=== PATIENT | male | born 1975 | race Caucasian/White ===

== ENCOUNTER 2016-12-04 10:00 | Day surgery (SDC) | payer BC ==
[~2016-12-04 10:00] MED LIST: Bupivacaine 25%/EPINEPHrine/PF 30 ML ONE
[2016-12-04] MEDS ORDERED: Lactated Ringers 1,000 ML IV SCH (11:15)
--- NOTE | 2016-12-04 11:19 | PCM.PREANE ---
Preanesthetic Assessment - Anesthesia/Transfusion/Family Hx Anesthesia History: No Prior Anesthesia Family History of Anesthesia Reaction: No Transfusion History: No Prior Transfusion(s) Intubation History: Unknown - Review of Systems General: No Symptoms Pulmonary: No Symptoms Cardiovascular: No Symptoms Gastrointestinal: No Symptoms Neurological: No Symptoms Other: Reports: None - Physical Assessment Height: 1.83 m Weight: 87.09 kg ASA Class: 1 Mental Status: Alert & Oriented x3 Airway Class: Mallampati = 2 Dentition: Reports: Normal Dentition Thyro-Mental Finger Breadths: 2 Mouth Opening Finger Breadths: 3 ROM/Head Extension: Full Lungs: Clear to Auscultation, Normal Respiratory Effort Cardiovascular: Regular Rate, Regular Rhythm - Allergies Allergies/Adverse Reactions: Allergies Allergy/AdvReac Type Severity Reaction Status Date / Time No Known Allergies Allergy Verified 12/02/16 07:55 - Blood Blood Available: No - Anesthesia Plan Pre-Op Medication Ordered: None - Acknowledgements Anesthesia Type Planned: MAC Pt an Appropriate Candidate for the Planned Anesthesia: Yes Alternatives and Risks of Anesthesia Discussed w Pt/Guardian: Yes Pt/Guardian Understands and Agrees with Anesthesia Plan: Yes PreAnesthesia Questionnaire - Past Health History Medical/Surgical History: Denies Medical/Surgical History HEENT History: Reports: Other (See Below) Other HEENT History: wears contacts - Past Surgical History Head Surgeries/Procedures: Reports: None - SUBSTANCE USE Smoking Status *Q: Former Smoker (quit 56 months ago after 25 years of smoking) Tobacco Use Within Last Twelve Months: Cigarettes Recreational Drug Use History: No - HOME MEDS Home Medications: Home Meds . [No Known Home Meds] 12/02/16 [History] - CURRENT (IN HOUSE) MEDS Current Meds: Current Medications Lactated Ringer's (Ringers, Lactated) 1,000 mls @ 100 mls/hr IV ASDIRECTED SALLY Discontinued Medications Bupivacaine HCl/Epinephrine Bitart (Sensorc Mpf 0.25%-Epi [id number]) Confirm Administered Dose 30 mls @ as directed .ROUTE .STK-MED ONE Stop: 12/04/16 08:52
[2016-12-04] MEDS ORDERED: ceFAZolin 2 GM in Premix Bag 1 BAG IV ONE (12:34)
[2016-12-04] MEDS ORDERED: Bupivacaine 0.25% 10 ML SDV INJECT ONE (12:34)
[2016-12-04] MEDS ORDERED: Propofol 200 MG/20 ML SDV ONE (12:58)
[2016-12-04] MEDS ORDERED: Midazolam 1 MG/ML 2 ML SDV ONE (12:58)
[2016-12-04] MEDS ORDERED: fentaNYL 100 MCG/2 ML SDV ONE (12:58)
[2016-12-04] MEDS ORDERED: Lidocaine 2% 5 ML SDV ONE (14:04)
[2016-12-04] MEDS ORDERED: Ondansetron 4 MG/2 ML SDV ONE (14:14)
[2016-12-04] MEDS ORDERED: Ketorolac 30 MG/ML SDV ONE (14:14)
[2016-12-04] MEDS ORDERED: Octyl 2-Cyanoacrylate 1 Tube ONE (14:20)
--- NOTE | 2016-12-04 14:48 | PCM.OPNOTE ---
- General Post-Op/Procedure Note Date of Surgery/Procedure: 12/04/16 Operative Procedure(s): excision of 4 left arm lipomas - 1.5cm each. Pre Op Diagnosis: left arm lipomas x4 Post-Op Diagnosis: Same Anesthesia Technique: Local, MAC Primary Surgeon: Rox Gonzalez Conference Specialist: Aliza Meza Complications: None Condition: Good Free Text/Narrative:: Intake & Output 12/03/16 12/04/16 12/04/16 23:59 07:59 15:59 Intake Total 950 Balance 950
--- NOTE | 2016-12-04 14:49 | PCM.POSTAN ---
POST ANESTHESIA ASSESSMENT - MENTAL STATUS Mental Status: Alert, Oriented - RESPIRATORY Respiratory Status: Respiratory Rate WNL, Airway Patent, O2 Saturation Stable - CARDIOVASCULAR CV Status: Pulse Rate WNL, Blood Pressure Stable - GASTROINTESTINAL GI Status: No Symptoms - POST OP HYDRATION Hydration Status: Adequate & Stable
--- NOTE | 2016-12-04 15:06 | PCM48HPAN ---
Post Anesthesia Note - EVALUATION WITHIN 48HRS OF ANESTHETIC Vital Signs in Normal Range: Yes Patient Participated in Evaluation: Yes Respiratory Function Stable: Yes Airway Patent: Yes Cardiovascular Function Stable: Yes Hydration Status Stable: Yes Pain Control Satisfactory: Yes Nausea and Vomiting Control Satisfactory: Yes Mental Status Recovered: Yes - COMMENTS/OBSERVATIONS Free Text/Narrative:: Doing well, no problems noted, ready for discharge in good condition.
--- NOTE | 2016-12-10 18:29 | OR ---
SURGEON: COLUMBA DUNBAR MD DATE OF PROCEDURE: 12/04/2016 PREOPERATIVE DIAGNOSIS: Left arm lipomas x4. POSTOPERATIVE DIAGNOSIS: Left arm lipomas x4. PROCEDURE: Excision of left arm lipomas x4 of 1.5 cm each. SENIOUR INSIGHT MANAGER: Aliza Meza. ANESTHESIA: Local MAC. INDICATIONS: Mr. Srinivasan is a 41-year-old gentleman with four 1.5 cm lipomas on the left arm. The patient does complain of some irritation with them and would like them removed. Risks and benefits of removal were discussed with him and he was in agreement to proceed. Risks were including, but not limited to, bleeding, infection, damage to underlying or overlying structures, possible need for future interventions, and possible scarring. PROCEDURE IN DETAIL: After informed consent was obtained and placed on the chart, the patient was brought to the operating theater and laid in the supine position. After adequate local MAC anesthetic was obtained, the area was prepped and draped and a time-out was completed to confirm side and site. A small 1.5 cm incisions were made over each of the 4 lipomas and they were easily excised with minimal circumferential dissection. Once removed, meticulous hemostasis was obtained and a 4-0 Monocryl stitch was used to close the skin in a running subcuticular fashion. They were dressed with Steri- Strips. The patient tolerated the procedure well. All counts and needles were correct at the end of the case. FOLLOWUP INSTRUCTIONS: The patient will see us in clinic in 10 to 14 days, or sooner if any problems, questions, or concerns. ALEJANDRO / RYAN /[id number]
== END 2016-12-04 15:30 | disposition home or self-care (01) ==
LOC: MW.SDS 10:00
PROVIDERS: ATTEND Plastic Surgery
DX: D17.22 Benign lipomatous neoplasm of skin and subcutaneous tissue of left arm (principal); Z87.891 Personal history of nicotine dependence
CPT/HCPCS: 11406; A9270; J1885; J2250; J2405; J3010; J7120; 00400; 88304; J2704